=== PATIENT | female | born 1970 | race Caucasian/White ===

== ENCOUNTER 2019-04-26 06:14 | Emergency (ER) | payer MEDICAID, OTHER ==
[~2019-04-26] VITALS: Ht 157.5 cm; Wt 52.8 kg
[2019-04-26] MEDS ORDERED: IBUPROFEN (06:28)
[2019-04-26] MEDS ORDERED: GABA600T7 PO (06:28)
[2019-04-26] MEDS ORDERED: SERT50TA28 PO (06:28)
--- NOTE | 2019-04-26 06:44 | NUR ---
FIRST CONTACT WITH PT. PT C/O R SIDED RIB PAIN, WORSE WITH PALP, UNRELIEVED BY IBUPROFEN, WORSE WITH COUGH, DEEP BREATHING, DENIES INJURY. PT'S AOX4. RESPS EVEN AND UNLABORED. BP/SPO2 MONITORS IN PLACE. CALL LIGHT WITHIN REACH. PA AT BEDSIDE TO ASSESS AT THIS TIME.
[2019-04-26] MEDS ORDERED: KETOROLAC 30 MG/1 ML ONE (06:48)
--- NOTE | 2019-04-26 06:49 | NUR ---
report given to rodger gong.
--- NOTE | 2019-04-26 06:51 | NUR ---
Report from Elizabeth AGUILERA. Pt medicated per JAN for R rib pain 05/28. Pt dnies other needs.
[2019-04-26] MEDS ORDERED: KETOROLAC 30 MG/1 ML IM ONE (07:00)
[2019-04-26 07:03] LABS: BASOPHILS # (AUTO) 0.04 x10^3/uL (0-0.1); BASOPHILS % (AUTO) 1 % (0-1); EOSINOPHILS # (AUTO) 0.69 x10^3/uL (0-0.4); EOSINOPHILS % (AUTO) 10 % (1-7); LYMPHOCYTES % (AUTO) 27 % (22-44); MD NO; MEAN CORPUSCULAR HEMOGLOBIN 30.2 pg (27.0-34.8); MEAN CORPUSCULAR HGB CONC 32.4 g/dL (32.4-35.8); MEAN CORPUSCULAR VOLUME 93.1 fL (80-100); MONOCYTES # (AUTO) 0.42 x10^3/uL (0.2-0.8); MONOCYTES % (AUTO) 6 % (2-9); NEUTROPHILS # (AUTO) 4.03 x10^3/uL (1.8-6.8); NEUTROPHILS % (AUTO) 57 % (42-75); PLATELET COUNT 250 x10^3/uL (130-400); RED BLOOD COUNT 4.06 x10^6/uL (3.82-5.3); RED CELL DISTRIBUTION WIDTH 12.5 % (9.6-15.2)
[2019-04-26 07:13] LABS: ALANINE AMINOTRANSFERASE 18 U/L (12-78); ALBUMIN 3.4 g/dL (3.4-5.0); ANION GAP 4 mmol/L (5-15); CALCIUM 8.4 mg/dL (8.5-10.1); CHLORIDE 112 mmol/L (98-107); CREATININE 0.88 mg/dL (0.55-1.02)
[2019-04-26 07:15] LABS: ALKALINE PHOSPHATASE 81 U/L (45-117); BILIRUBIN,TOTAL 0.2 mg/dL (0.2-1.0); TOTAL PROTEIN 6.1 g/dL (6.4-8.2)
[2019-04-26 07:40] VITALS: BP 108/53
--- NOTE | 2019-04-26 07:40 | NUR ---
Pt states pain improved after meds, denies other needs.
== END 2019-04-26 07:58 | disposition home or self-care (01) ==
LOC: ED 07:25
DX: M94.0 Chondrocostal junction syndrome [Tietze] (principal)
CPT/HCPCS: 36415; 71101; 80053; 83690; 85025; 93005; 96372; 99284; J1885